=== PATIENT | male | born 1975 | race Caucasian/White ===

== ENCOUNTER 2020-10-25 17:04 | Outpatient (REF) | payer OTHER, SELFPAY | END 2020-10-25 17:05 | disposition home or self-care (01) | LOC: HO.LAB 17:04 | PROVIDERS: PCP Internal Medicine; Visit Provider Internal Medicine | DX: Z20.828 Contact with and (suspected) exposure to other viral communicable diseases (principal) | CPT/HCPCS: C9803; U0003 ==

== ENCOUNTER 2020-10-31 06:13 | Outpatient (REF) | payer OTHER, SELFPAY | END 2020-10-31 06:14 | disposition home or self-care (01) | LOC: HO.LAB 06:13 | PROVIDERS: PCP Internal Medicine; Visit Provider Internal Medicine | DX: Z20.828 Contact with and (suspected) exposure to other viral communicable diseases (principal) | CPT/HCPCS: C9803; U0003 ==

== ENCOUNTER 2021-12-06 20:46 | Emergency (ER) | payer OTHER, SELFPAY ==
[2021-12-06 20:52] VITALS: BP 132/96; PULSE 108; O2SAT 97
[2021-12-06 21:57] VITALS: BP 135/94; PULSE 103; RESP 18; TEMP 37.6; O2SAT 95; BMI 31.0
--- NOTE | 2021-12-06 22:03 | ED_ITS ---
History of Present Illness General Chief Complaint: Epistaxis Stated Complaint: epstaxis x3 hours Time Seen by Provider: 12/06/21 21:35 Source: patient Mode of arrival: ambulatory History of Present Illness HPI Narrative: 46-year-old male, unvaccinated, presents after being diagnosed with COVID-19 on 11/30/2020 and presents with a nose bleed that ?just would not stop since 3:00 p.m. this evening?. Patient states he has been blowing his nose frequently due to his current infection but otherwise denies any personal or family history of bleeding disorders and denies being on any blood thinners. Related Data Allergies Allergy/AdvReac Type Severity Reaction Status Date / Time No Known Allergies Allergy Unverified 08/03/20 17:48 Review of Systems Review of Systems: Pertinent positives and negatives as stated in HPI 10 point review of systems is otherwise negative. PMFSH Past Medical History Source: nursing notes reviewed Social History Social History Advance Directives: No Advance Directives Information Provided: No Physical Exam Vital Signs: Vital Signs: Last Vital Signs Temp 99.6 F 12/06/21 21:57 Pulse 103 H 12/06/21 21:57 Resp 18 12/06/21 21:57 BP 135/94 H 12/06/21 21:57 Pulse Ox 95 12/06/21 21:57 BMI result Body Mass Index 31.0 VITAL SIGNS: Reviewed. GENERAL: Well developed, well nourished, in no acute distress. HEAD: Normocephalic/atraumatic EYES: PERRLA, EOMI NASAL: OROPHARYNX: no oral lesions noted, posterior pharynx clear LUNGS: Normal breath sounds. No adventitious sounds or accessory muscle use. SpO2<95> CARDIOVASCULAR: Regular rate and rhythm without noted murmurs ABDOMEN: Soft, non-tender, non-distended with bowel sounds. SKIN: Inspection of the skin reveals no rashes NEUROLOGIC: Alert and oriented x 4. Course Course Course Narrative: 46-year-old with history and clinical presentation consistent with transit epistaxis secondary to irritated and dried mucosa. Patient is no longer experiencing epistaxis and plan of care in outpatient setting was discussed with him at bedside he is otherwise discharged home in stable con dition. Discharge Plan Discharge Clinical Impression: Epistaxis, SARS-CoV-2 positive Patient Disposition: Home, Self-Care Instructions: Nosebleed (ED), COVID-19 (Coronavirus Disease 2019) (ED) Additional Instructions: 1. You must continue stay isolated and follow all state and Federal guidelines for COVID-19 positivity. 2. Your nasal mucosa as tried out and this can be alleviated with the following interventions: - [id number] saline spray, administer to each nostril 3 to 4 times a day. - [id number] cool mist humidifier at the bedside while your sleeping. - limit nose blowing and if necessary use Kleenex with lotion. - you may put a small amount Vaseline to the pad of your pinky finger and apply it to the septal portion of each nostril for additional protection Return to the ER for worsening symptoms. Referrals: Shemar Lehman MD [Primary Care Provider] - 2 days Discharge Date/Time: 12/06/21 22:24
== END 2021-12-06 22:24 | disposition home or self-care (01) ==
PROVIDERS: Emergency Provider Student in an Organized Health Care Education/Training Program; PCP Internal Medicine
DX: U07.1 COVID-19 (principal); R04.0 Epistaxis
CPT/HCPCS: 99282

== ENCOUNTER 2025-02-03 14:35 | Outpatient (REF) | payer BC, SELFPAY ==
[2025-02-03 15:56] LABS: Erythrocyte Sedimentation Rate 2 MM/HR (0-15)
[2025-02-03 16:15] LABS: Vitamin B12 570 pg/mL (200-900)
[2025-02-04 19:09] LABS: Lyme Abs Screen <0.90 index
== END 2025-02-03 14:36 | disposition home or self-care (01) ==
LOC: HO.LAB 14:35
PROVIDERS: PCP Internal Medicine; Visit Provider Psychiatry & Neurology Neurology
DX: G31.84 Mild cognitive impairment of uncertain or unknown etiology (principal)
CPT/HCPCS: 36415; 82607; 84443; 85652; 86617; 86618